=== PATIENT | female | born 1995 | race Two or more races ===

== ENCOUNTER 2018-11-26 05:20 | Emergency (ER) | payer MEDICAID, OTHER ==
[~2018-11-26] VITALS: Ht 157.5 cm; Wt 47.6 kg
[2018-11-26 05:45] VITALS: BP 122/81
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
--- NOTE | 2018-11-26 05:46 | NUR ---
EULALIA CALLED INCIDENT #[id number]. MOLDER SWEEP #[id number].
--- NOTE | 2018-11-26 06:20 | NUR ---
[employer] AT BEDSIDE.
== END 2018-11-26 07:14 | disposition home or self-care (01) ==
LOC: ER 05:22
DX: T74.21XA Adult sexual abuse, confirmed, initial encounter (principal); R06.02 Shortness of breath; F41.9 Anxiety disorder, unspecified; F32.9 Major depressive disorder, single episode, unspecified; R00.0 Tachycardia, unspecified; Y04.8XXA Assault by other bodily force, initial encounter; Y93.01 Activity, walking, marching and hiking; Y92.410 Unspecified street and highway as the place of occurrence of the external cause; Y99.8 Other external cause status